=== PATIENT | female | born 1970 | race Caucasian/White ===

== ENCOUNTER 2016-11-10 18:10 | Emergency (ER) | payer BC, OTHER ==
[2016-11-10] MEDS ORDERED: Lidocaine 1% with EPINEPHrine 1:100,000 20 ML MDV INFILT ONE (18:11)
[2016-11-10] MEDS ORDERED: Lidocaine 1% 20 ML MDV INJECT ONE (18:15)
[2016-11-10] MEDS ORDERED: Diphtheria,Pertussis(Acell),Tetanus Vaccine 0.5 ML SDV IM ONE (18:58)
[2016-11-10] MEDS ORDERED: Amoxicillin/Clavulanate K 500-125 MG Tab PO ONE (18:59)
--- NOTE | 2016-11-10 19:05 | EDM.PDOC ---
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, last Td 02/21, will give booster as it is a deeper lac - Related Data Allergies Allergy/AdvReac Type Severity Reaction Status Date / Time No Known Allergies Allergy Verified 11/10/16 18:37 Home Meds: Home Meds Lisinopril 40 mg PO DAILY 02/08/15 [History] Acetaminophen [Tylenol Extra Strength] 2 tab PO DAILY 11/10/16 [History] Amoxicillin/Potassium Clav [Augmentin 500-125 Tablet] 1 each PO BID #10 tablet 11/10/16 [Rx] Metoprolol Succinate [Toprol XL] 1 tab PO DAILY 11/10/16 [History] buPROPion HCl [Wellbutrin SR] 1 tab PO BID 11/10/16 [History] Past Medical History Other Cardiovascular History: Tachycardia managed with medication - Past Surgical History Other Cardiovascular Surgeries/Procedures: Heart loop monitor Other Female Surgeries/Procedures: Hysterectomy ' ED ROS GENERAL - Review of Systems Review Of Systems: See Below Constitutional: Reports: No Symptoms HEENT: Reports: No Symptoms Respiratory: Reports: No Symptoms Cardiovascular: Reports: No Symptoms Endocrine: Reports: No Symptoms GI/Abdominal: Reports: No Symptoms : Reports: No Symptoms Musculoskeletal: Reports: No Symptoms Skin: Reports: Wound Neurological: Reports: No Symptoms Psychiatric: Reports: No Symptoms Hematologic/Lymphatic: Reports: No Symptoms Immunologic: Reports: No Symptoms ED EXAM, SKIN/RASH Exam: See Below Exam Limited By: No Limitations General Appearance: Alert, WD/WN, No Apparent Distress Respiratory/Chest: No Respiratory Distress Cardiovascular: Regular Rate, Rhythm Skin: Other (R hand with full flex/ext of 5th DIP/PIP/MCP, there is a curvilinear 3 cm lac on the lateral aspect over the 5th MCP, there is no violation of the joint capsule which is visible, LT intact throughout, does not extend over the dorsum of the 5th MCP, lateral superficial tendon injury identified and secured distally and proximally with a single 4-0 Vicryl, skin approximated with 3-0 Ethilon x 7, 1% lido without epi with a #30 needle used for analgesia, cleaned x 15 with gauze and saline and surgical soap, no f.b., tolerated well, good approximation of margins) Course - Orders/Labs/Meds Meds: Medications Discontinued Medications Generic Name Dose Route Start Last Admin Trade Name Marla PRN Reason Stop Dose Admin Lidocaine HCl 10 ml 11/10/16 18:15 Xylocaine 1% INJECT 11/10/16 18:16 ONETIME ONE Departure - Departure Time of Disposition: 19:09 Disposition: Home, Self-Care 01 Condition: Good Clinical Impression: Laceration of right hand - Discharge Information Prescriptions: Amoxicillin/Potassium Clav [Augmentin 500-125 Tablet] 1 each PO BID #10 tablet Referrals: Angie Brooks [employer] [Primary Care Provider] - Additional Instructions: Keep clean and dry and covered with a dressing and a splint. To reduce risk of infection, take Augmentin 500/125 mg 1 tab 2 times a day for 5 days. See a physician the same day for any increase in stiffness, redness, pain, warm , fever, swelling or discharge. See your physician in 1 week to remove sutures. Call your Physician or Return to Emergency Department if: * Your condition worsens in any way. * You develop fever greater than 100.4. * You have vomitting that does not stop with medications. * You have pain that is not controlled with medications.
[2016-11-10 19:14] VITALS: BP 118/72
== END 2016-11-10 19:30 | disposition home or self-care (01) ==
LOC: FB.ED 18:10
DX: S61.411A Laceration without foreign body of right hand, initial encounter (principal); Z23 Encounter for immunization; Z79.899 Other long term (current) drug therapy; Z90.710 Acquired absence of both cervix and uterus; W25.XXXA Contact with sharp glass, initial encounter; Y93.G1 Activity, food preparation and clean up
CPT/HCPCS: 12002; 90471; 90715; 99283; A4217; A9270

== ENCOUNTER 2021-12-04 18:48 | Emergency (ER) | payer BC ==
[2021-12-04] MEDS ORDERED: Lidocaine 2% 20 ML MDV INFILT ONE (18:49)
[2021-12-04] MEDS ORDERED: Amoxicillin/Clavulanate K 875-125 MG Tab PO STA (19:47)
[2021-12-04 19:57] VITALS: BP 116/85; PULSE 76
== END 2021-12-04 20:00 | disposition home or self-care (01) ==
LOC: FB.ED 18:48
DX: S41.111A Laceration without foreign body of right upper arm, initial encounter (principal); I10 Essential (primary) hypertension; Z79.899 Other long term (current) drug therapy; Z90.710 Acquired absence of both cervix and uterus; Z87.891 Personal history of nicotine dependence; W54.0XXA Bitten by dog, initial encounter
CPT/HCPCS: 12002; 99283; A9270